=== PATIENT | male | born 1960 | race Caucasian/White ===

== ENCOUNTER 2016-11-25 10:10 | Emergency (ER) | payer OTHER ==
[2016-11-25 10:20] VITALS: O2SAT 97
[2016-11-25] MEDS ORDERED: BABY ASPIRIN 81 MG CHEW ONE (10:37)
[2016-11-25] MEDS ORDERED: Nitrostat 0.4 MG (ED) SL ONE ×2 (10:38→10:41)
[2016-11-25] MEDS ORDERED: MORPHINE SULFATE 4 MG INJ IV ONE (10:38)
--- NOTE | 2016-11-25 10:43 | ERPHSYRPT ---
- History of Present Illness Time Seen by Provider: 11/25/16 10:37 Source: patient Exam Limitations: no limitations Patient Subjective Stated Complaint: pt states he has been sob for the past 2 days. denies having a productive cough. denies any fever. states he has achiness to whole body. Triage Nursing Assessment: pt pink, warm, dry. lung sounds clear diminished in left lower lobe. pt afebrile at this time. Physician History: The patient is a 56-year-old male with a past medical history of an OR 2 years ago complaining of a sudden onset of all over body pain and mild shortness of breath that began 2 days ago while he was sitting. He denies any cough. He denies chest pain, nausea, vomiting, or sweating. He is supposed to take lisinopril for high blood pressure but does not take it at this time. He did not take any analgesics, such as tylenol and ibuprofen for his body pain. He went to [facility] today but left because he was upset over the IV placement. His past medical history is significant for hypertension, back pain , and an OR. He states the OR was evaluated 2 years ago and no blockage was found. He smokes daily. Timing/Duration: day(s) (2) Severity: moderate Modifying Factors: Improves With: nothing Associated Symptoms: shortness of breath, No nausea, No cough, No chest pain Allergies/Adverse Reactions: ampicillin [Ampicillin] Allergy (Mild, Verified 11/25/16 10:20) midazolam HCl [From Versed] Allergy (Mild, Verified 11/25/16 10:20) promethazine HCl [From Phenergan] Allergy (Mild, Verified 11/25/16 10:20) Home Medications: No Reportable Medications [No Reported Medications] 11/25/16 [History] Hx Tetanus, Diphtheria Vaccination/Date Given: Yes (up to date) Hx Influenza Vaccination/Date Given: No Hx Pneumococcal Vaccination/Date Given: No Immunizations Up to Date: Yes - Review of Systems Constitutional: No Fever, No Chills Eyes: No Symptoms Ears, Nose, & Throat: No Symptoms Respiratory: Dyspnea (mild), No Cough Cardiac: No Chest Pain, No Edema, No Syncope Abdominal/Gastrointestinal: No Abdominal Pain, No Nausea, No Vomiting, No Diarrhea Genitourinary Symptoms: No Dysuria Musculoskeletal: No Back Pain, No Neck Pain Skin: No Rash Neurological: No Dizziness, No Focal Weakness, No Sensory Changes Psychological: No Symptoms Endocrine: No Symptoms Hematologic/Lymphatic: No Symptoms Immunological/Allergic: No Symptoms All Other Systems: Reviewed and Negative - Past Medical History Pertinent Past Medical History: Yes Neurological History: No Pertinent History Cardiac History: No Pertinent History Respiratory History: No Pertinent History Endocrine Medical History: No Pertinent History Musculoskeletal History: Osteoarthritis GI Medical History: Diverticulitis Other Medical History: back problems - Past Surgical History Past Surgical History: Yes Gastrointestinal: Colon Resection, Hernia Repair Musculoskeletal: Orthopedic Surgery - Social History Smoking Status: Current every day smoker How long have you smoked: 40 Exposure to second hand smoke: Yes Drug Use: none Patient Lives Alone: No - Nursing Vital Signs Nursing Vital Signs: Initial Vital Signs Temperature 97.8 F 11/25/16 10:12 Pulse Rate 52 L 11/25/16 10:12 Respiratory Rate 28 H 11/25/16 10:12 Blood Pressure 152/93 11/25/16 10:12 O2 Sat by Pulse Oximetry 97 11/25/16 10:12 Pain Scale Pain Intensity 5 - Physical Exam General Appearance: moderate distress Eye Exam: PERRL/EOMI, eyes nml inspection Ears, Nose, Throat Exam: normal ENT inspection, TMs normal, pharynx normal, moist mucous membranes Neck Exam: normal inspection, non-tender, supple, full range of motion Respiratory Exam: normal breath sounds, lungs clear, No respiratory distress Cardiovascular Exam: regular rate/rhythm, normal heart sounds, normal peripheral pulses Gastrointestinal/Abdomen Exam: soft, normal bowel sounds, other (obese), No tenderness, No mass Rectal Exam: not done Back Exam: normal inspection, normal range of motion, No CVA tenderness, No vertebral tenderness Extremity Exam: normal inspection, normal range of motion, pelvis stable Neurologic Exam: alert, oriented x 3, cooperative, normal mood/affect, nml cerebellar function, nml station & gait, sensation nml, No motor deficits Skin Exam: normal color, warm, dry, No rash Lymphatic Exam: No adenopathy SpO2 Interpretation: normal SpO2: 97 Oxygen Delivery: Room Air - Course EKG Interpreted by Me: RATE, Right Bundle Branch Block, ST Elev (V1, V2, V3, II) - Progress Progress: unchanged Progress Note: 11/25/16 11:08 The patient was given morphine 4 mg and nitroglycerin 0.4 mg sublingual without relief. The blood pressure after these 2 medicines did lower. I spoke with Dr. Cooper at [facility] ER who accepts transfer of the patient for possible acute coronary syndrome. Comparison of today's EKG and one from [facility] dated 06/27/16 shows flipped T waves in V4, V5, and V6. Discussed with Dr.: Other (Dr Cooper at [facility] ) Counseled pt/family regarding: diagnosis - Departure Time of Disposition: 11:12 Departure Disposition: Transfer ([facility] ER per DR Cooper.) Clinical Impression: Acute coronary syndrome, Acute electrocardiogram changes Condition: Stable Critical Care Time: No Referrals: KIKE LINDSAY [Primary Care Provider] - Additional Instructions: Your having a possible acute coronary syndrome. You have changes in your EKG. The EKG from 06/27/16 has changed today. You're being transferred to [facility] ER to see Dr. Cooper. You were given in our ER morphine 4 mg, nitroglycerin 0.4 mg, heparin 5000 unit bolus, and heparin 1600 unit per hour drip.
[2016-11-25] MEDS ORDERED: BABY ASPIRIN 81 MG CHEW PO ONE (10:45)
[2016-11-25] MEDS ORDERED: MORPHINE SULFATE 4 MG INJ ONE (10:46)
[2016-11-25] MEDS ORDERED: Heparin 25,000 units/D5W 250ML PREMIX 25,000 UNITS/250 ML BAG IV ONE (11:04)
[2016-11-25] MEDS ORDERED: Heparin 5000 UNITS/0.5 ML (HIGH RISK MED) ONE (11:04)
[2016-11-25 11:05] LABS: BASOPHIL % 0.1 % (0.0-0.4); Eosinophil % 4.7 % (0.00-5.0); Lymphocytes % 23.1 % (24.0-44.0); Mean Cell Volume 84.3 fl (78-100); Mean Corpuscular Hemoglobin 29.2 pg (26-32); Mean Platelet Volume 10.7 fl (6-9.5); Monocytes % 8.1 % (0.0-12.0); Platelet Count 159 K/mm3 (150-450); Red Blood Count 5.27 M/mm3 (4.1-5.6); Red Cell Distribution Width 13.7 % (11.5-14.0)
--- NOTE | 2016-11-25 11:11 | XRAY ---
Indication: Short of breath. Comparison: None Portable chest demonstrates borderline cardiomegaly and vascular congestion without consolidation or large effusion. Bony thorax intact with spinal degenerative changes.
[2016-11-25 11:36] LABS: ALBUMIN 3.2 g/dL (3.4-5.0); ALKALINE PHOSPHATASE 124 U/L (46-116); ANION GAP 14.1 MEQ/L (5-15); BLOOD UREA NITROGEN 7 mg/dL (9-20); CHLORIDE 107 mEq/L (98-107); Carbon Dioxide 23.8 mEq/L (21-32); Glucose 121 MG/DL (70-110); LIPASE 334 U/L (73-393); Potassium 3.3 mEq/L (3.5-5.1); SGOT/AST 32 U/L (15-37); SGPT/ALT 17 U/L (12-78); SODIUM 142 mEq/L (136-145); Total Protein 7.5 gm/dL (6.4-8.2)
[2016-11-25 11:37] VITALS: BP 146/77; PULSE 48
== END 2016-11-25 11:15 | disposition short-term general hospital (02) ==
LOC: ED 10:10
DX: I24.9 Acute ischemic heart disease, unspecified (principal); R94.31 Abnormal electrocardiogram [ECG] [EKG]; R06.02 Shortness of breath; I25.2 Old myocardial infarction; R11.2 Nausea with vomiting, unspecified
CPT/HCPCS: 36000; 36415; 71010; 80053; 83605; 83690; 84484; 85025; 87631; 93005; 93041; 96374; 99285; J1644; J2270; A9270-GY

== ENCOUNTER 2017-06-28 00:36 | Emergency (ER) | payer OTHER ==
[2017-06-28 00:48] VITALS: BP 122/85; PULSE 89; O2SAT 98
--- NOTE | 2017-06-28 01:01 | ERPHSYRPT ---
- History of Present Illness Time Seen by Provider: 06/28/17 00:58 Source: patient Exam Limitations: no limitations Patient Subjective Stated Complaint: states he has been having pain down his left arm for 7 or 8 months been to [facility] and they told him it was pinched nerve. Triage Nursing Assessment: pt alert and orientedx3, ambualtes by self, gait is steady, lung sounds clear, no abnormalities noted in shoulder or kneck. skin warm dry and intact Physician History: states he has been having pain down his left arm for 7 or 8 months been to [facility] in [place] and they told him it was pinched nerve. Occurred: other (for 6-7 months) Method of Injury: unknown Quality: intermittent, aching Severity of Pain-Max: mild Severity of Pain-Current: mild Extremities Pain Location: shoulder: left Allergies/Adverse Reactions: ampicillin [Ampicillin] Allergy (Mild, Verified 11/25/16 10:20) midazolam HCl [From Versed] Allergy (Mild, Verified 11/25/16 10:20) promethazine HCl [From Phenergan] Allergy (Mild, Verified 11/25/16 10:20) Hx Tetanus, Diphtheria Vaccination/Date Given: Yes Hx Influenza Vaccination/Date Given: No Hx Pneumococcal Vaccination/Date Given: No Immunizations Up to Date: Yes - Review of Systems Constitutional: No Symptoms Eyes: No Symptoms Ears, Nose, & Throat: No Symptoms Respiratory: No Symptoms Cardiac: No Symptoms Abdominal/Gastrointestinal: No Symptoms Genitourinary Symptoms: No Symptoms Musculoskeletal: Joint Pain Skin: No Symptoms - Past Medical History Pertinent Past Medical History: Yes Neurological History: No Pertinent History Cardiac History: No Pertinent History Respiratory History: No Pertinent History Endocrine Medical History: No Pertinent History Musculoskeletal History: Osteoarthritis GI Medical History: Diverticulitis Other Medical History: back problems - Past Surgical History Past Surgical History: Yes Gastrointestinal: Colon Resection, Hernia Repair Musculoskeletal: Orthopedic Surgery - Social History Smoking Status: Current every day smoker How long have you smoked: 40 Exposure to second hand smoke: Yes Drug Use: none Patient Lives Alone: No - Nursing Vital Signs Nursing Vital Signs: Initial Vital Signs Temperature 97.6 F 06/28/17 00:37 Pulse Rate 89 06/28/17 00:37 Respiratory Rate 18 06/28/17 00:37 Blood Pressure 122/85 06/28/17 00:37 O2 Sat by Pulse Oximetry 98 04/14/18 00:37 Pain Scale Pain Intensity 10 - Physical Exam General Appearance: no apparent distress Eyes, Ears, Nose, Throat Exam: normal ENT inspection Shoulder Exam: normal inspection, non-tender, no evidence of injury, normal ROM , pain, No bone tenderness, No deformity, No soft tissue tenderness SpO2: 98 Oxygen Delivery: Room Air - Course Nursing assessment & vital signs reviewed: Yes - Radiology Exams Left Shoulder X-ray Interpretation: Reviewed by me, Negative, No Fracture Ordered Tests: Active Orders 24 hr Category Date Time Status SHOULDER Stat Exams 06/28/17 Ordered - Progress Progress: unchanged Counseled pt/family regarding: diagnosis, need for follow-up, rad results - Departure Time of Disposition: 01:24 Departure Disposition: Home Clinical Impression: Shoulder pain, left Qualifiers: Chronicity: chronic Qualified Code(s): M25.512 - Pain in left shoulder; G89.29 - Other chronic pain; G89.29 - Other chronic pain Condition: Stable Critical Care Time: No Referrals: KIKE LINDSAY [Primary Care Provider] - Instructions: Shoulder Bursitis (DC) Additional Instructions: SPRAINS/STRAINS/CONTUSIONS 1. Rest the affected area as much as possible for the next few days. 2. Apply ice to the affected area for 20-30 minutes at a time, several times a day. 3. If you receive an elastic wrap, wear it only while awake for comfort and support. Re-wrap the elastic wrap if it feels too tight or too loose. 4. If swelling is present, elevate the affected part above the level of the heart for at least 2 to 3 days. 5. Use splints, slings, or crutches as instructed. 6. Watch for severe swelling, coldness, numbness, and discoloration of the fingers and toes. See your family physician or return to the emergency department if any of these are noted. Prescriptions: Naproxen 500 mg [Naprosyn 500 MG] 500 mg PO BIDAC #30 tablet Orphenadrine Citrate 100 mg [Norflex 100 MG Tablet] 100 mg PO BID #20 tab
--- NOTE | 2017-06-28 07:31 | XRAY ---
Indication: Shoulder pain 7 months. No known injury. Comparison: None 3 views of the left shoulder demonstrates mild AC degenerative arthropathy and tiny humeral head cyst. No other bony, articular, or soft tissue abnormalities.
== END 2017-06-28 01:43 | disposition home or self-care (01) ==
LOC: ED 00:36
DX: M25.512 Pain in left shoulder (principal); G89.29 Other chronic pain
CPT/HCPCS: 73030; 99281; 99283

== ENCOUNTER 2018-12-09 10:21 | Observation (INO) | payer OTHER ==
--- NOTE | 2018-12-09 10:34 | ERPHSYRPT ---
- History of Present Illness Time Seen by Provider: 12/09/18 10:34 Historian: patient Exam Limitations: no limitations Patient Subjective Stated Complaint: Abd pain Physician History: RUQ and RLQ pain for 4 months. H/O Diverticulitis/Colectomy Timing/Duration: other (4 months) Quality: burning, cramping Abdominal Pain Onset Location: RUQ, RLQ Pain Radiation: no radiation Severity of Pain-Max: moderate Severity of Pain-Current: moderate Modifying Factors: Improves With: nothing Associated Symptoms: nausea, No denies symptoms, No back, No chest pain, No diaphoresis, No diarrhea, No fever/chills, No fatigue, No headache, No heartburn , No loss of appetite, No neck pain, No rash, No shortness of breath Previous symptoms: same symptoms as today Allergies/Adverse Reactions: ampicillin [Ampicillin] Allergy (Mild, Verified 12/09/18 10:32) midazolam HCl [From Versed] Allergy (Mild, Verified 12/09/18 10:32) promethazine HCl [From Phenergan] Allergy (Mild, Verified 12/09/18 10:32) Home Medications: Cyanocobalamin (Vitamin B-12) [B-12] 1,000 mg PO DAILY 12/09/18 [History] Liraglutide [Victoza 2-Hung] 1.8 mg SQ DAILY 12/09/18 [History] Lisinopril/Hydrochlorothiazide [Lisinopril-Hctz 20-25 mg Tab] 10 mg PO DAILY [History] Oxycodone / APAP 10/325 mg [Oxycodone-Acetaminophen 10-325] 10 mg PO QID 12/09/18 [History] Pravastatin Sodium 20 mg PO DAILY 12/09/18 [History] Hx Tetanus, Diphtheria Vaccination/Date Given: Yes Hx Influenza Vaccination/Date Given: No Hx Pneumococcal Vaccination/Date Given: No - Review of Systems Constitutional: No Fever, No Chills Eyes: No Symptoms Ears, Nose, & Throat: No Symptoms Respiratory: No Cough, No Dyspnea Cardiac: No Chest Pain, No Edema, No Syncope Abdominal/Gastrointestinal: Abdominal Pain, Nausea, Constipation, No Vomiting, No Diarrhea Genitourinary Symptoms: No Dysuria Musculoskeletal: No Back Pain, No Neck Pain Skin: No Rash Neurological: No Dizziness, No Focal Weakness, No Sensory Changes Psychological: No Symptoms Endocrine: No Symptoms All Other Systems: Reviewed and Negative - Past Medical History Pertinent Past Medical History: Yes Neurological History: No Pertinent History Cardiac History: No Pertinent History Respiratory History: No Pertinent History Endocrine Medical History: No Pertinent History Musculoskeletal History: Osteoarthritis GI Medical History: Diverticulitis Other Medical History: back problems - Past Surgical History Past Surgical History: Yes Gastrointestinal: Colon Resection, Hernia Repair Musculoskeletal: Orthopedic Surgery - Social History Smoking Status: Current every day smoker How long have you smoked: 40 Exposure to second hand smoke: Yes Drug Use: none Patient Lives Alone: No - Nursing Vital Signs Nursing Vital Signs: Initial Vital Signs Temperature 97.8 F 12/09/18 10:24 Pulse Rate 60 12/09/18 10:24 Respiratory Rate 16 12/09/18 10:24 Blood Pressure 104/57 12/09/18 10:24 O2 Sat by Pulse Oximetry 99 12/09/18 10:24 Pain Scale Pain Intensity 4 - Physical Exam General Appearance: no apparent distress, alert Eye Exam: PERRL/EOMI, eyes nml inspection Ears, Nose, Throat Exam: normal ENT inspection, pharynx normal, moist mucous membranes Neck Exam: normal inspection, non-tender, supple, full range of motion Respiratory Exam: normal breath sounds, lungs clear, No respiratory distress Cardiovascular Exam: regular rate/rhythm, normal heart sounds Gastrointestinal/Abdomen Exam: soft, normal bowel sounds, tenderness, No mass, No pulsatile mass, No rebound, No organomegaly Back Exam: normal inspection, normal range of motion, No CVA tenderness, No vertebral tenderness Extremity Exam: normal inspection, normal range of motion, pelvis stable Neurologic Exam: alert, oriented x 3, cooperative, normal mood/affect, nml cerebellar function, sensation nml, No motor deficits Skin Exam: normal color, warm, dry Lymphatic Exam: No adenopathy, No axilla node tender (L) SpO2 Interpretation: normal O2 Delivery: Room Air - Course Nursing assessment & vital signs reviewed: Yes EKG Interpreted by Me: Sinus [place], NORMAL AXIS, NORMAL INTERVALS, Non-specific ST Changes - CT Exams Abdomen/Pelvis CT Interpretation: Discussed w/radiologist, Other (nothing acute) Ordered Tests: Active Orders 24 hr Category Date Time Status EKG-ER Only STAT Care 12/09/18 12:09 Active IV Insertion STAT Care 12/09/18 10:38 Active ABDOMEN AND PELVIS W/0 CONTRAS [CT] Stat Exams 12/09/18 11:51 Completed CHEST 1 VIEW (PORTABLE) Stat Exams 12/09/18 12:39 Taken BLOOD CULTURE Stat Lab 12/09/18 11:00 Received CBC W DIFF Stat Lab 12/09/18 11:00 Completed CMP Stat Lab 12/09/18 11:00 Completed LIPASE Stat Lab 12/09/18 11:00 Completed Lactic Acid Stat Lab 12/09/18 12:09 Completed TROPONIN Stat Lab 12/09/18 12:09 Completed Transfer Order Routine Transfer 12/09/18 Ordered Medication Summary Generic Name Dose Route Start Last Admin Trade Name Freq PRN Reason Stop Dose Admin Fentanyl Citrate 50 mcg 12/09/18 13:11 Sublimaze 100 Mcg/2 Ml IV 12/14/18 13:10 Q4H PRN PRN SEVERE PAIN Discontinued Medications Generic Name Dose Route Start Last Admin Trade Name Freq PRN Reason Stop Dose Admin Fentanyl Citrate 25 mcg 12/09/18 13:11 Sublimaze 100 Mcg/2 Ml IV 12/09/18 13:12 STAT ONE Sodium Chloride 1,000 mls @ 999 mls/hr 12/09/18 12:10 12/09/18 12:54 Sodium Chloride 0.9% 1000 Ml IV 12/09/18 13:10 999 mls/hr .Q1H1M STA Administration Levofloxacin/Dextrose 500 mg in 100 mls @ 100 mls/hr 12/09/18 12:11 12/09/18 12:54 Levofloxacin 500mg/100ml D5w IV 12/09/18 13:10 100 mls/hr STAT STA 100 mls/hr Administration Sodium Chloride Confirm 12/09/18 12:53 Sodium Chloride 0.9% 1000 Ml Administered 12/09/18 12:54 Dose 1,000 mls @ ud .ROUTE .STK-MED ONE Levofloxacin/Dextrose Confirm 12/09/18 12:53 Levofloxacin 500mg/100ml D5w Administered 12/09/18 12:54 Dose 500 mg in 100 mls @ ud IV .STK-MED ONE Ondansetron HCl 4 mg 12/09/18 10:38 12/09/18 11:13 Zofran 4 Mg/2 Ml Vial IV 12/09/18 10:39 Not Given STAT ONE Ondansetron HCl 4 mg 12/09/18 11:14 12/09/18 11:22 Zofran Odt 4 Mg PO 12/09/18 11:15 4 mg STAT ONE Administration Ondansetron HCl Confirm 12/09/18 11:15 Zofran Odt 4 Mg Administered 12/09/18 11:16 Dose 4 mg .ROUTE .STK-MED ONE Lab/Rad Data: Laboratory Result Diagrams 12/09/18 11:00 12/09/18 11:00 Laboratory Results 12/09/18 12/09/18 12/09/18 Range/Units 12:09 12:09 11:00 WBC (4.0-10.5) K/mm3 RBC (4.1-5.6) M/mm3 Hgb (12.5-18.0) gm/dl Hct (42-50) % MCV (78-100) fl MCH (26-32) pg MCHC (32-36) g/dl RDW (11.5-14.0) % Plt Count (150-450) K/mm3 MPV (6-9.5) fl Gran % (36.0-66.0) % Eos # (Auto) (0-0.5) Absolute Lymphs (auto) (1.0-4.6) Absolute Monos (auto) (0.0-1.3) Lymphocytes % (24.0-44.0) % Monocytes % (0.0-12.0) % Eosinophils % (0.00-5.0) % Basophils % (0.0-0.4) % Absolute Granulocytes (1.4-6.9) Basophils # (0-0.4) Sodium 137 (137-145) mmol/L Potassium 4.1 (3.5-5.1) mmol/L Chloride 98 (98-107) mmol/L Carbon Dioxide 26 (22-30) mmol/L Anion Gap 16.1 H (5-15) MEQ/L BUN 31 H (9-20) mg/dL Creatinine 1.98 H (0.66-1.25) mg/dL Estimated GFR 37.0 ML/MIN Glucose 93 (74-106) mg/dL Lactic Acid 1.0 (0.4-2.0) Calcium 9.7 (8.4-10.2) mg/dL Total Bilirubin 0.60 (0.2-1.3) mg/dL AST 28 (17-59) U/L ALT 17 (0-50) U/L Alkaline Phosphatase 95 (38-126) U/L Troponin I < 0.012 (0.000-0.034) ng/mL Serum Total Protein 7.9 (6.3-8.2) g/dL Albumin 4.4 (3.5-5.0) g/dL Lipase 1220 H (23-300) U/L 12/09/18 Range/Units 11:00 WBC 10.9 H (4.0-10.5) K/mm3 RBC 5.17 (4.1-5.6) M/mm3 Hgb 15.4 (12.5-18.0) gm/dl Hct 44.7 (42-50) % MCV 86.5 (78-100) fl MCH 29.8 (26-32) pg MCHC 34.5 (32-36) g/dl RDW 13.8 (11.5-14.0) % Plt Count 253 (150-450) K/mm3 MPV 10.1 H (6-9.5) fl Gran % 64.3 (36.0-66.0) % Eos # (Auto) 0.26 (0-0.5) Absolute Lymphs (auto) 2.77 (1.0-4.6) Absolute Monos (auto) 0.83 (0.0-1.3) Lymphocytes % 25.5 (24.0-44.0) % Monocytes % 7.6 (0.0-12.0) % Eosinophils % 2.4 (0.00-5.0) % Basophils % 0.2 (0.0-0.4) % Absolute Granulocytes 6.98 H (1.4-6.9) Basophils # 0.02 (0-0.4) Sodium (137-145) mmol/L Potassium (3.5-5.1) mmol/L Chloride (98-107) mmol/L Carbon Dioxide (22-30) mmol/L Anion Gap (5-15) MEQ/L BUN (9-20) mg/dL Creatinine (0.66-1.25) mg/dL Estimated GFR ML/MIN Glucose (74-106) mg/dL Lactic Acid (0.4-2.0) Calcium (8.4-10.2) mg/dL Total Bilirubin (0.2-1.3) mg/dL AST (17-59) U/L ALT (0-50) U/L Alkaline Phosphatase (38-126) U/L Troponin I (0.000-0.034) ng/mL Serum Total Protein (6.3-8.2) g/dL Albumin (3.5-5.0) g/dL Lipase (23-300) U/L - Progress Discussed with : Tosin Will see patient in: hospital (observation) Counseled pt/family regarding: diagnosis - Departure Departure Disposition: Observation Clinical Impression: Pancreatitis Qualifiers: Chronicity: acute Pancreatitis type: unspecified pancreatitis type Acute pancreatitis complication: unspecified Qualified Code(s): K85.90 - Acute pancreatitis without necrosis or infection, unspecified Condition: Fair Critical Care Time: Yes Critical Care Time(excluding separately billable procedures): Critical 30-74 mins Referrals: JUAN MIRANDA [Primary Care Provider] - Plan of Treatment: Admit
[2018-12-09] MEDS ORDERED: Zofran 4 MG/2 ML VIAL IV ONE (10:38)
[2018-12-09 11:03] LABS: BASOPHIL % 0.2 % (0.0-0.4); Basophil (Absolute #) 0.02 (0-0.4); Eosinophil % 2.4 % (0.00-5.0); Eosinophil (Absolute #) 0.26 (0-0.5); Granulocyte Absolute (ANC) 6.98 (1.4-6.9); Granulocytes % 64.3 % (36.0-66.0); Hematocrit 44.7 % (42-50); Hemoglobin 15.4 gm/dl (12.5-18.0); Lymphocyte (Absolute #) 2.77 (1.0-4.6); Lymphocytes % 25.5 % (24.0-44.0); Mean Cell Volume 86.5 fl (78-100); Mean Corpuscular Hemoglobin 29.8 pg (26-32); Mean Corpuscular Hgb Concent. 34.5 g/dl (32-36); Mean Platelet Volume 10.1 fl (6-9.5); Monocyte (Absolute #) 0.83 (0.0-1.3); Monocytes % 7.6 % (0.0-12.0); Platelet Count 253 K/mm3 (150-450); Red Blood Count 5.17 M/mm3 (4.1-5.6); Red Cell Distribution Width 13.8 % (11.5-14.0); White Blood Count 10.9 K/mm3 (4.0-10.5)
[2018-12-09 11:11] LABS: ALBUMIN 4.4 g/dL (3.5-5.0); ANION GAP 16.1 MEQ/L (5-15); BILIRUBIN,TOTAL 0.6 mg/dL (0.2-1.3); Calcium 9.7 mg/dL (8.4-10.2); Creatinine 1 1.98 mg/dL (0.66-1.25); Potassium 4.1 mmol/L (3.5-5.1); Total Protein 7.9 g/dL (6.3-8.2)
[2018-12-09] MEDS ORDERED: ZOFRAN ODT 4 MG PO ONE (11:14)
[2018-12-09] MEDS ORDERED: ZOFRAN ODT 4 MG ONE (11:15)
[2018-12-09] MEDS ORDERED: Sodium Chloride 0.9% 1000 ML 1,000 ML IV STA (12:10)
[2018-12-09] MEDS ORDERED: Levofloxacin 500MG/100ML D5W 500 MG/100 ML BAG IV STA (12:11)
--- NOTE | 2018-12-09 12:50 | XRAY ---
Exam: CT of the abdomen and pelvis without IV contrast from 12/09/2018. CTDI: 27.49 mGy Comparison: None. Indication: 58-year-old male with abdominal pain, nausea and vomiting for 2 months, complains of "knot" in lower right abdomen (marked with a BB). Technique: Non-IV contrast axial images were obtained through the abdomen and pelvis. Reconstructed coronal and sagittal images were created and reviewed. Findings: The lung bases appear essentially clear with only minimal posterior bibasilar dependent atelectatic changes. The transverse heart size appears within normal limits. Evaluation of the solid organs is limited without the use of IV contrast material. With this limitation in mind, the liver and spleen appear unremarkable without definite mass or intrahepatic biliary duct distention. The gallbladder appears distended but reveals no dense calcifications within it. The pancreas appears unremarkable. There is some mild thickening of the limbs of the adrenal glands, but a definite mass is not seen. The kidneys appear of unremarkable size and reveal no calculi or hydronephrosis. No definite solid renal mass is seen. I cannot exclude an 11-12 mm in diameter round cyst at the inferior margin of the right kidney on axial image #46. This measures +9.2 Hounsfield units. Incidentally, an apparent pill density or calcification is seen within a small bowel loop just anterior to the lower pole of the left kidney. Moderate atherosclerotic calcification is seen within the abdominal aorta and iliac arteries. No abdominal aortic aneurysm or abnormal retroperitoneal lymphadenopathy is seen. There is abundant intraperitoneal fat. There is no free intraperitoneal air. There is a mildly flaccid appearance of the anterior abdominal wall. Some surgical clips are seen near the midline and just to the right of midline near the anterior abdominal wall from prior surgery. In addition, there appears to be an infra umbilical ventral hernia containing a loop of small bowel within it just to the right of midline. It does not appear to be obstructed at this time. This hernia measures about 5.6 cm in width and at least 4.9 cm in height. This must be what the patient is feeling. The remainder of the bowel gas pattern appears unremarkable. Scattered stool is seen within the right hemicolon and rectosigmoid colon. I see no findings to suggest appendicitis within the right lower quadrant. I do note a couple small pill densities or calcifications within the cecum. No pelvic mass is seen. The urinary bladder is minimally distended, but appears grossly unremarkable. There appears to be some distal bowel surgery within the sigmoid colon region. Correlate clinically. The seminal vesicles and prostate gland appear unremarkable. No free fluid or enlarged pelvic lymph nodes are seen. A few small postinflammatory lymph nodes are seen within the femoral regions. The skeleton reveals no acute fracture or aggressive bone lesion. Mild spondylosis changes are seen throughout the visualized thoracolumbar spine. There is mild degenerative disc disease at L4-L5 and moderate to marked degenerative disc disease at L5-S1. Lower lumbar facet joint arthropathy is seen as well. Impression: 1. There is an infra umbilical ventral hernia extending slightly to the right of midline containing some nondilated small bowel within it. Correlate clinically. I see no evidence of bowel obstruction or strangulation at this time. 2. No other acute intra-abdominal or pelvic process is seen. I note evidence of prior surgery. Correlate clinically.
[2018-12-09] MEDS ORDERED: Sodium Chloride 0.9% 1000 ML 1,000 ML ONE (12:53)
[2018-12-09] MEDS ORDERED: Levofloxacin 500MG/100ML D5W 500 MG/100 ML BAG IV ONE (12:53)
[2018-12-09] MEDS ORDERED: SUBLIMAZE 100 MCG/2 ML IV PRN (13:11)
[2018-12-09] MEDS ORDERED: SUBLIMAZE 100 MCG/2 ML IV ONE (13:11)
--- NOTE | 2018-12-09 13:14 | XRAY ---
Exam: AP upright portable chest film from 12/09/2018. Comparison: Two-view chest from 04/09/2018. Indication: 58-year-old male with vomiting, post IJ line placement. Findings: The film was obtained in a lordotic projection. There is a tiny vascular line seen at the superior margin of the radiograph within the lower right side of the neck with the tip located about 4.5 cm to the right of midline at the level of the superior vertebral endplate of C6. This is located at least 3.9 cm above the superior margin of the right lung apex. There is no pneumothorax. The transverse heart size appears within normal limits for this AP portable technique. The chon and mediastinal structures appear unremarkable. The lung bentley are adequately inflated. No air space infiltrates, vascular congestion, or pleural fluid is seen. Degenerative osteophyte formation is seen within the lower thoracic spine. I also note some asymmetric osteoarthritic changes of the left shoulder joint and left acromioclavicular joint. Impression: 1. Evidently, a right internal jugular vascular line has been placed. The tip is pointing inferiorly within the soft tissues of the lower right side of the neck. No pneumothorax is seen. 2. No acute cardiopulmonary disease is seen, no change from 04/09/2018.
[2018-12-09] MEDS ORDERED: SUBLIMAZE 100 MCG/2 ML ONE (13:17)
[2018-12-09] MEDS ORDERED: Zofran 4 MG/2 ML VIAL IV PRN (13:41)
[2018-12-09] MEDS ORDERED: MEDICATION INTERVENTION MC SCH (16:45)
[2018-12-09] MEDS ORDERED: OXYCODONE-ACETAMINOPHEN 10-325 PO PRN (17:00)
[2018-12-09] MEDS ORDERED: OXYCODONE-ACETAMINOPHEN 10-325 PO SCH (17:00)
--- NOTE | 2018-12-09 17:33 | PCM.HP ---
History of Present Illness - Chief Complaint Chief Complaint: Pt. notes abdominal pain for the past 4 months. Date: 12/09/18 History of Present Illness: is a 58 year old male. Presents to ER with vomiting, and diffuse abdominal pain the past several months , he does not note any specific reason other than tired of the pain as the initiation of er visit. Pt. notes and upset he has not ate the past 4 days. - Review of Systems Constitutional: No Fever, No Chills Eyes: No Symptoms Ears, Nose, & Throat: No Symptoms Respiratory: No Cough, No Short Of Breath Cardiac: No Chest Pain, No Edema, No Syncope Abdominal/Gastrointestinal: Abdominal Pain, Nausea, Vomiting, No Diarrhea, No Constipation Genitourinary Symptoms: No Dysuria Musculoskeletal: No Back Pain, No Neck Pain Skin: No Rash Neurological: No Dizziness, No Focal Weakness, No Sensory Changes Psychological: No Symptoms Endocrine: No Symptoms Hematologic/Lymphatic: No Symptoms Medications & Allergies Home Medications: Home Medication List Cyanocobalamin (Vitamin B-12) [B-12] 1,000 mcg PO DAILY 12/09/18 [History Confirmed 12/09/18] Liraglutide [Victoza 2-Hung] 1.8 mg SQ DAILY 12/09/18 [History Confirmed 12/09/18 ] Lisinopril/Hydrochlorothiazide [Lisinopril-Hctz 20-25 mg Tab] 1 tab PO DAILY [History Confirmed 12/09/18] Oxycodone / APAP 10/325 mg [Oxycodone-Acetaminophen 10-325] 1 tab PO QID 12/09/18 [History Confirmed 12/09/18] Pravastatin Sodium 20 mg PO HS 12/09/18 [History Confirmed 12/09/18] Allergies/Adverse Reactions: Allergies Allergy/AdvReac Type Severity Reaction Status Date / Time ampicillin [Ampicillin] Allergy Mild Verified 12/09/18 10:32 midazolam HCl [From Versed] Allergy Mild Verified 12/09/18 10:32 promethazine HCl Allergy Mild Verified 12/09/18 10:32 [From Phenergan] - Past Medical History Past Medical History: Yes Neurological History: No Pertinent History ENT History: No Pertinent History Cardiac History: Hypertension, Myocardial Infarction ([place]) Respiratory History: No Pertinent History Endocrine Medical History: Diabetes Type II Musculoskelatal History: Osteoarthritis GI Medical History: Diverticulitis History: No Pertinent History Pyscho-Social History: No Pertinent History Male Reproductive Disorders: No Pertinent History Comment: back problems - Past Surgical History Past Surgical History: Yes Neuro Surgical History: No Pertinent History Respiratory Surgery: No Pertinent History GI Surgical History: Colon Resection, Hernia Repair Musculskeletal Surgical Hx: Orthopedic Surgery Other Surgical History: a couple ""back operations. - Social History Smoking Status: Current every day smoker How long have you smoked: 40 Exposure to second hand smoke: Yes Alcohol: None Drug Use: none - Physical Exam Vital Signs: Vital Signs - 24 hr Temp Pulse Resp BP Pulse Ox 12/09/18 16:00 18 12/09/18 15:57 97.9 F 60 18 132/59 98 12/09/18 14:14 98.3 F 57 L 18 120/70 98 12/09/18 13:50 98.3 F 57 L 18 120/70 98 12/09/18 12:51 98.6 F 54 L 16 106/48 97 12/09/18 12:22 54 L 16 83/63 98 12/09/18 11:16 98.1 F 86 20 91/57 99 12/09/18 10:24 97.8 F 60 16 104/57 99 General Appearance: no apparent distress, alert Neurologic Exam: alert, oriented x 3, cooperative, normal mood/affect, agitation , No motor deficits Eye Exam: PERRL/EOMI, eyes nml inspection Ears, Nose, Throat Exam: normal ENT inspection, moist mucous membranes Neck Exam: normal inspection, non-tender, supple Respiratory Exam: normal breath sounds, lungs clear, No respiratory distress Cardiovascular Exam: regular rate/rhythm, normal heart sounds, normal peripheral pulses Gastrointestinal/Abdomen Exam: soft, tenderness, other (ventral hernias noted), No mass, No rebound Rectal Exam: deferred Extremity Exam: normal inspection, normal range of motion Skin Exam: normal color, warm, dry, No rash Results - Labs Lab/Micro Results: Lab Results-Last 24 Hours 12/09/18 12/09/18 12/09/18 Range/Units 11:00 11:00 12:09 WBC 10.9 H (4.0-10.5) K/mm3 RBC 5.17 (4.1-5.6) M/mm3 Hgb 15.4 (12.5-18.0) gm/dl Hct 44.7 (42-50) % MCV 86.5 (78-100) fl MCH 29.8 (26-32) pg MCHC 34.5 (32-36) g/dl RDW 13.8 (11.5-14.0) % Plt Count 253 (150-450) K/mm3 MPV 10.1 H (6-9.5) fl Gran % 64.3 (36.0-66.0) % Eos # (Auto) 0.26 (0-0.5) Absolute Lymphs (auto) 2.77 (1.0-4.6) Absolute Monos (auto) 0.83 (0.0-1.3) Lymphocytes % 25.5 (24.0-44.0) % Monocytes % 7.6 (0.0-12.0) % Eosinophils % 2.4 (0.00-5.0) % Basophils % 0.2 (0.0-0.4) % Absolute Granulocytes 6.98 H (1.4-6.9) Basophils # 0.02 (0-0.4) Sodium 137 (137-145) mmol/L Potassium 4.1 (3.5-5.1) mmol/L Chloride 98 (98-107) mmol/L Carbon Dioxide 26 (22-30) mmol/L Anion Gap 16.1 H (5-15) MEQ/L BUN 31 H (9-20) mg/dL Creatinine 1.98 H (0.66-1.25) mg/dL Estimated GFR 37.0 ML/MIN Glucose 93 (74-106) mg/dL Lactic Acid 1.0 (0.4-2.0) Calcium 9.7 (8.4-10.2) mg/dL Total Bilirubin 0.60 (0.2-1.3) mg/dL AST 28 (17-59) U/L ALT 17 (0-50) U/L Alkaline Phosphatase 95 (38-126) U/L Troponin I (0.000-0.034) ng/mL Serum Total Protein 7.9 (6.3-8.2) g/dL Albumin 4.4 (3.5-5.0) g/dL Lipase 1220 H (23-300) U/L 12/09/18 12/09/18 Range/Units 12:09 14:07 WBC (4.0-10.5) K/mm3 RBC (4.1-5.6) M/mm3 Hgb (12.5-18.0) gm/dl Hct (42-50) % MCV (78-100) fl MCH (26-32) pg MCHC (32-36) g/dl RDW (11.5-14.0) % Plt Count (150-450) K/mm3 MPV (6-9.5) fl Gran % (36.0-66.0) % Eos # (Auto) (0-0.5) Absolute Lymphs (auto) (1.0-4.6) Absolute Monos (auto) (0.0-1.3) Lymphocytes % (24.0-44.0) % Monocytes % (0.0-12.0) % Eosinophils % (0.00-5.0) % Basophils % (0.0-0.4) % Absolute Granulocytes (1.4-6.9) Basophils # (0-0.4) Sodium (137-145) mmol/L Potassium (3.5-5.1) mmol/L Chloride (98-107) mmol/L Carbon Dioxide (22-30) mmol/L Anion Gap (5-15) MEQ/L BUN (9-20) mg/dL Creatinine (0.66-1.25) mg/dL Estimated GFR ML/MIN Glucose (74-106) mg/dL Lactic Acid (0.4-2.0) Calcium (8.4-10.2) mg/dL Total Bilirubin (0.2-1.3) mg/dL AST (17-59) U/L ALT (0-50) U/L Alkaline Phosphatase (38-126) U/L Troponin I < 0.012 < 0.012 (0.000-0.034) ng/mL Serum Total Protein (6.3-8.2) g/dL Albumin (3.5-5.0) g/dL Lipase (23-300) U/L - Radiology Impressions Radiology Exams & Impressions: Radiology Procedures Category Date Time Status ABDOMEN AND PELVIS W/0 CONTRAS [CT] Stat Exams 12/09/18 11:51 Completed CHEST 1 VIEW (PORTABLE) Stat Exams 12/09/18 12:39 Completed Assessment/Plan (1) Pancreatitis Current Visit: Yes Status: Acute Qualifiers: Chronicity: acute Pancreatitis type: unspecified pancreatitis type Acute pancreatitis complication: unspecified Qualified Code(s): K85.90 - Acute pancreatitis without necrosis or infection, unspecified Assessment & Plan: Hydration and NPO, recheck lipase in am Code(s): K85.90 - ACUTE PANCREATITIS WITHOUT NECROSIS OR INFECTION, UNSP
[2018-12-09] MEDS: SUBLIMAZE 100 MCG/2 ML IV PRN ×2 (20:40→23:06)
[2018-12-09] MEDS: Sodium Chloride 0.9% 10 ML FLUSH Syringe IV SCH (20:41)
[2018-12-09] MEDS: Sodium Chloride 0.9% 1000 ML 1,000 ML IV SCH (23:06)
[2018-12-10] MEDS: SUBLIMAZE 100 MCG/2 ML IV PRN ×2 (04:34→07:35)
[2018-12-10] MEDS: Sodium Chloride 0.9% 1000 ML 1,000 ML IV SCH (04:47)
[2018-12-10] MEDS: Sodium Chloride 0.9% 10 ML FLUSH Syringe IV SCH (04:48)
[2018-12-10 04:53] LABS: BASOPHIL % 0.1 % (0.0-0.4); Basophil (Absolute #) 0.01 (0-0.4); Eosinophil (Absolute #) 0.28 (0-0.5); Granulocyte Absolute (ANC) 6.39 (1.4-6.9); Granulocytes % 68.2 % (36.0-66.0); Hematocrit 42.8 % (42-50); Hemoglobin 14.8 gm/dl (12.5-18.0); Lymphocyte (Absolute #) 1.95 (1.0-4.6); Lymphocytes % 20.8 % (24.0-44.0); Mean Cell Volume 86.8 fl (78-100); Mean Corpuscular Hgb Concent. 34.6 g/dl (32-36); Mean Platelet Volume 9.9 fl (6-9.5); Monocyte (Absolute #) 0.74 (0.0-1.3); Monocytes % 7.9 % (0.0-12.0); Platelet Count 217 K/mm3 (150-450); Red Blood Count 4.93 M/mm3 (4.1-5.6); Red Cell Distribution Width 13.6 % (11.5-14.0); White Blood Count 9.4 K/mm3 (4.0-10.5)
[2018-12-10 05:13] LABS: ALBUMIN 3.9 g/dL (3.5-5.0); ANION GAP 13.7 MEQ/L (5-15); BILIRUBIN,TOTAL 0.7 mg/dL (0.2-1.3); Calcium 9.2 mg/dL (8.4-10.2); Creatinine 1 1.41 mg/dL (0.66-1.25); Potassium 4.3 mmol/L (3.5-5.1); Total Protein 7.1 g/dL (6.3-8.2)
[2018-12-10 07:25] VITALS: BP 112/67; PULSE 62; O2SAT 96
--- NOTE | 2018-12-10 08:40 | XRAY ---
Indication: PICC line placement. Comparison: Taken earlier in the day. Portable chest demonstrates new left arm PICC line with tip projecting over the SVC. Previous right IJ central venous access catheter not seen. Remaining heart and lungs again normal. Comment: Preliminary interpretation was made by [facility]. No discrepancy.
[2018-12-10] MEDS ORDERED: Vitamin B-12 500 MCG PO SCH (10:00)
[2018-12-10 10:08] LABS: Risk Ratio 4.4
--- NOTE | 2018-12-10 13:23 | SSS ---
DISCHARGE DIAGNOSIS: PANCREATITIS. HISTORY: The patient is a 58 year-old white male patient who reports he has been having intermittent abdominal pain and nausea over the past several weeks. He reports he just got to feeling worse yesterday with vomiting and presented himself to the emergency room. The patient was seen in the emergency room and diagnosed with pancreatitis and placed NPO and admitted to the hospital. The patient by morning was feeling hungry and reports will sign out AMA if he does not get anything to eat. PAST MEDICAL/SURGICAL HISTORY: Significant for previous colon surgery. He had a sigmoid colectomy for what sounds like diverticular disease. He reports there was no cancer. The patient otherwise has hypertension. He has osteoarthritis, back pain. He had the colon resection, herniorrhaphy, orthopedic surgeries. Also includes diabetes for which he is currently taking Victoza. HOME MEDICATIONS: Include Victoza, lisinopril, oxycodone, pravastatin, B12. ALLERGIES: AMPICILLIN. PHENERGAN. VERSED. PHYSICAL EXAMINATION: The patient's vital signs on admission showed his temperature to be 97.8F, pulse 60, respiratory rate 16, blood pressure 104/57. O2 saturation 99% on room air. HEENT: Normocephalic, atraumatic. Pupils equal round reactive to light. Extraocular movements intact. Oropharynx is pink and moist. NECK: Supple without lymphadenopathy, thyromegaly or JVD. CHEST: Clear to auscultation. HEART: Regular rate and rhythm. ABDOMEN: Soft. No palpable masses. There is small ventral hernia. EXTREMITIES: Without cyanosis, clubbing or edema. NEUROLOGIC: The patient is alert and oriented x3. LAB DATA AND TESTS: Laboratory studies have shown a white count of 9.400, hemoglobin 14.8, PLT count 217,000. The patient's lipase in the morning was 1,483 this was slightly up from 1,220 on initial evaluation. The patient's metabolic panel otherwise showed his sugar to be 78, BUN 29, creatinine 1.41. Electrolytes were normal. Liver enzymes were normal. Bilirubin normal. Troponin was normal also. His CT scan showed umbilical ventral hernia and nondilated loop of small bowel within it. There is no other acute process going on. It does show evidence of previous colon surgery. HOSPITAL COURSE: The patient had internal jugular placed and then a PICC line due to poor IV access. He has been receiving IV fluids. By the morning of 12/10/2018, the patient was feeling hungry and anxious to return home. We instructed him on a low fat diet and gave him some Zofran tablets to take at home for nausea. He is to have follow up in our office in one week. We are also attempting to set him up with an appointment to see Dr. Ryan Muniz, GI Specialist, to evaluate his elevation in liver enzymes and evaluate his pancreas. He does still have his gallbladder which on the CT scan was apparently not abnormal. The patient was also felt to have contaminated blood culture with gram positive cocci in one or two bottles being present. Being a hard stick I feel it is likely that he had contamination as he had no increase in his white count or fever and otherwise essentially looks fine this morning.
== END 2018-12-10 10:32 | disposition home or self-care (01) ==
LOC: ED 10:21 → MED SURG 13:42
PROVIDERS: ADMIT Family Medicine; ATTEND Family Medicine
DX: K85.90 Acute pancreatitis without necrosis or infection, unspecified (principal); R11.2 Nausea with vomiting, unspecified; I10 Essential (primary) hypertension; R79.89 Other specified abnormal findings of blood chemistry; M19.90 Unspecified osteoarthritis, unspecified site; M54.9 Dorsalgia, unspecified; Z79.899 Other long term (current) drug therapy
CPT/HCPCS: 36000; 36415; 36569; 71045; 74176; 80053; 80061; 82962; 83036; 83605; 83690; 83721; 84484; 85025; 87040; 93005; 96360; 96365; 96374; 99285; G0378; 76942; 99291; J1956; J3010; Q0162; A9270-GY

== ENCOUNTER 2019-07-12 06:35 | Day surgery (SDC) | payer OTHER ==
[~2019-07-12 06:35] MED LIST: Lactated Ringers 1,000 ML IV ONE; Lactated Ringers 1,000 ML IV SCH
[2019-07-12] MEDS ORDERED: DIPRIVAN 200 MG/20 ML IV ONE ×2 (08:12→08:25)
--- NOTE | 2019-07-12 08:35 | HP ---
DATE OF SURGERY: 07/12/2019 HISTORY OF PRESENT ILLNESS: The patient is a 58 year-old with large ventral hernia. Prior surgery in [place] a [place] surgeon. He was seen six or seven months ago. He was being followed by Dr. Quesada at that time. He had a colonoscopy and considering hernia repair. As he had Dr. Quesada do his colonoscopy as a follow up after completion of that and given cardiac clearance which failed to do so and he now showed up in the office in May. He just showed up in the office here recently and evaluated for hernia repair. Exam as mentioned before. He needs a colonoscopy first and then consider hernia repair. PAST MEDICAL HISTORY: Myocardial infarction in the past. Heart disease. Chronic back pain. Trigeminal neuralgia. Hypertension. PAST SURGICAL HISTORY: Back surgery in the past. Colon resection with perforation five or six years ago in [place]. Hernia surgery in the past according to the patient. MEDICATIONS: He does not take any medications on a regular basis. He denies any current medication list. Back in November it looks like he had been on some vitamin B12, lisinopril, oxycodone, Pravastatin, Victoza. ALLERGIES: AMPICILLIN. MIDAZOLAM. PROMETHAZINE. FAMILY HISTORY: Cancer. SOCIAL HISTORY: One pack per day smoker. He was counseled to stop smoking in the past. He denies alcohol abuse. REVIEW OF SYSTEMS: Fourteen systems reviewed per admission assessment. No chest pain or palpitations other systems negative or noncontributory as above and per preadmission questionnaire. PHYSICAL EXAMINATION: GENERAL: HEENT: Sclerae nonicteric. NECK: No JVD. CHEST: Equal excursion, nonlabored breathing. CVS: Regular rate and rhythm. ABDOMEN: Soft. No peritoneal signs. EXTREMITIES: No significant edema. NEURO: Alert, oriented, moving extremities symmetrically. No gross motor deficits noted. RECTAL: Deferred timed to endoscopy exam. IMPRESSION: A chronically ill gentleman for colonoscopy for past six months trying to get cardiac clearance. He was told to stop smoking and along with losing weight. He is in need of colonoscopy prior to considering ventral hernia repair. Risks and benefits explained in detail not limited to bleeding or infection, risk of bowel injury or perforation, risk of missed or nondiagnosis or incomplete exam possibly requiring barium enema, general risk of anesthesia or sedation, risk of cardiopulmonary event given his comorbidities. He understands at a later date will plan to discuss possible hernia repair, risk of bleeding or infection, risk of bowel injury, risk if the mesh infection possibly requiring removal. Risk of aches, pains possibly chronic in nature, risk of adhesion or bowel obstruction or ileus, remote risk of mesh fracture or failure possibly creating issue with the viscera or other structures possibly requiring other procedures, risk of hernia recurrence particularly given his weight issues and history of smoking. He understands the importance of stopping smoking and losing weight eventually. There is also a chance of recurrence, risk of deep venous thrombosis, pulmonary embolism, pneumonia, risk of cardiopulmonary event but not limited to. At this time we will set him up for outpatient colonoscopy.
[2019-07-12 09:16] VITALS: O2SAT 99
[2019-07-12 09:55] VITALS: BP 135/89; PULSE 50
--- NOTE | 2019-07-12 13:45 | OP ---
SURGERY DATE/TIME: 07/12/2019 08 PREOPERATIVE DIAGNOSIS: History of chronic abdominal pain, history of chronic back pain increasingly symptomatic ventral hernia. Need for colonoscopy prior to considering hernia repair. POSTOPERATIVE DIAGNOSES: 1) Ascending colon polyp. 2) Mast colonic diverticulosis. 3) Small internal and external hemorrhoids. 4) Limited bowel prep. 5) ASA Class III. PROCEDURES: Colonoscopy to cecum with hot biopsy polypectomy ascending colon polyps. SURGEON: Dr. Wu Reis. ANESTHESIA: MAC. ESTIMATED BLOOD LOSS: Minimal. WITHDRAWAL TIME: 7 minutes. INDICATIONS: As noted above. Risks and benefits explained in detail but not limited to and consent obtained. DESCRIPTION OF PROCEDURE AND FINDINGS: The patient is taken to the operating room. MAC anesthesia introduced. After official time out and no disagreement with planned procedure, digital rectal exam did not reveal any rectal masses. He did have some small internal and external hemorrhoids. Video colonoscope inserted and passed up through the tortuous left colon, transverse colon. With external pressure the scope passed down the ascending colon to cecum. Appendiceal orifice and valve well visualized and palpation of right lower quadrant confirmed location. Prep overall was limited. There were some semisolid and some solid stool chunks throughout the colon. These were suction irrigated as clear as possible but did slightly limit the exam. There was a small polyp in the ascending colon that was removed with hot biopsy forceps with brief bursts of cautery. Good hemostasis noted. Otherwise the patient did have small diverticula throughout the colon, pancolonic diverticulosis. The scope was slowly and carefully withdrawn over the next seven minutes. The biopsy site in the ascending colon had good hemostasis. There were no signs of any other large polyps, masses or obstructing lesions. The patient tolerated the procedure well. There were no immediate complications. There was no family available to discuss the findings with at this time.
== END 2019-07-12 09:56 | disposition home or self-care (01) ==
LOC: SDC 06:35
PROVIDERS: ATTEND Surgery
DX: K57.30 Diverticulosis of large intestine without perforation or abscess without bleeding (principal); D12.4 Benign neoplasm of descending colon; K64.4 Residual hemorrhoidal skin tags; K64.8 Other hemorrhoids; I10 Essential (primary) hypertension; Z86.79 Personal history of other diseases of the circulatory system
CPT/HCPCS: 88305; J2704

== ENCOUNTER 2019-07-28 00:03 | Observation (INO) | payer OTHER ==
[2019-07-28 00:47] LABS: A-aADO2 2; ABG HEMOGLOBIN 14.9; ABG POTASSIUM 4.1 (3.5-5.1); ABG SITE RIGHT BRACHIAL; ARTERIAL BLD GAS O2 SATURATION 99.5 % (95-100); ARTERIAL BLOOD GAS FIO2 21 %; ARTERIAL BLOOD GAS PCO2 40 mmHg (35-45); ARTERIAL BLOOD GAS PO2 98 mmHg (75-100); ARTERIAL BLOOD GAS pH 7.47 (7.35-7.45); HCO3- 29.1 (22-28); HGB O2 SAT 92.5 g/dF (94-100); paO2 pAO1 0.98
--- NOTE | 2019-07-28 00:59 | ERPHSYRPT ---
- History of Present Illness Time Seen by Provider: 07/28/19 00:18 Source: patient Exam Limitations: no limitations Patient Subjective Stated Complaint: pt states that he has been to multiple hospitals because he has been weak lately, pt states that he has not felt well for the past 2 couple weeks off and on, pt states that the middle of his back in hurting, pt states that he went to [facility] [place] Triage Nursing Assessment: pt ambulated into the er, pt is axo x4, pt states 10/ 10 pain to back, hypertensive, pt has wheezing in all lobes, c/o "not feeling well and feel weak" Physician History: Patient is a 58-year-old male who presents to our ED with complaints of generalized weakness, malaise, upper back soreness for the 2 weeks but worse over the past 3 days.. Patient has been to 2 previous hospitals. He had left both because states they were unable to obtain IV access. Patient denies chest pain. No nausea vomiting or diaphoresis. Symptoms are progressive. Symptoms are moderate in intensity. No specific worsening improving factors. Patient voices no other complaints at this time. Timing/Duration: day(s) Severity: moderate Modifying Factors: Improves With: nothing Associated Symptoms: cough, malaise, No nausea, No vomiting, No diaphoresis, No chest pain Allergies/Adverse Reactions: midazolam HCl [From Versed] Allergy (Severe, Verified 07/28/19 00:29) Rash "and upset stomach" ampicillin [Ampicillin] Allergy (Mild, Verified 07/28/19 00:29) Rash "and upset stomach" promethazine HCl [From Phenergan] Allergy (Mild, Verified 07/28/19 00:29) Rash "and upset stomach" Hx Tetanus, Diphtheria Vaccination/Date Given: Yes Hx Influenza Vaccination/Date Given: No Hx Pneumococcal Vaccination/Date Given: No Travel Risk - International Travel Have you traveled outside of the country in past 3 weeks: No Have you or anyone close to you been diagnosed with or: No Do your reside in a community with a known COVID-19 case?: Yes If Yes where:: [facility] - Coronavirus Screening Has patient experienced Coronavirus symptoms: Yes Symptoms experienced: respiratory symptoms (i.e.Cought,shortness of breath), weakness - Review of Systems Constitutional: No Symptoms, No Fever, No Chills Eyes: No Symptoms Ears, Nose, & Throat: No Symptoms Respiratory: Cough, Dyspnea on Exertion (GUERRERO), Wheezing, No Dyspnea Cardiac: No Symptoms, No Chest Pain, No Edema, No Syncope Abdominal/Gastrointestinal: No Symptoms, No Abdominal Pain, No Nausea, No Vomiting, No Diarrhea Genitourinary Symptoms: No Symptoms, No Dysuria Musculoskeletal: No Symptoms, No Back Pain, No Neck Pain Skin: No Symptoms, No Rash Neurological: No Symptoms, No Dizziness, No Focal Weakness, No Sensory Changes Psychological: No Symptoms Endocrine: No Symptoms Hematologic/Lymphatic: No Symptoms Immunological/Allergic: No Symptoms All Other Systems: Reviewed and Negative - Past Medical History Pertinent Past Medical History: Yes Neurological History: No Pertinent History ENT History: No Pertinent History Cardiac History: Myocardial Infarction (MS) Respiratory History: No Pertinent History Endocrine Medical History: No Pertinent History Musculoskeletal History: Osteoarthritis GI Medical History: Diverticulitis, Polyps History: No Pertinent History Psycho-Social History: No Pertinent History Male Reproductive Disorders: No Pertinent History Other Medical History: back problems - Past Surgical History Past Surgical History: Yes Neuro Surgical History: No Pertinent History Cardiac: No Pertinent History Respiratory: No Pertinent History Gastrointestinal: Colon Resection, Hernia Repair Genitourinary: No Pertinent History Musculoskeletal: Orthopedic Surgery Male Surgical History: No Pertinent History Other Surgical History: a couple ""back operations. - Social History Smoking Status: Current every day smoker How long have you smoked: 20years Exposure to second hand smoke: Yes Drug Use: none Patient Lives Alone: No - Nursing Vital Signs Nursing Vital Signs: Initial Vital Signs Temperature 97.4 F 07/28/19 00:13 Pulse Rate 53 L 07/28/19 00:13 Respiratory Rate 24 07/28/19 00:13 Blood Pressure 189/99 07/28/19 00:13 O2 Sat by Pulse Oximetry 98 07/28/19 00:13 Pain Scale Pain Intensity [] 10 Pain Intensity 10 - Physical Exam General Appearance: no apparent distress, alert Eye Exam: PERRL/EOMI, eyes nml inspection Ears, Nose, Throat Exam: normal ENT inspection, TMs normal, pharynx normal, moist mucous membranes Neck Exam: normal inspection, non-tender, supple, full range of motion Respiratory Exam: normal breath sounds, other (Coarse breath sounds bilaterally. Faint wheezing bilateral lung bentley.), No respiratory distress Cardiovascular Exam: regular rate/rhythm, normal heart sounds, normal peripheral pulses Gastrointestinal/Abdomen Exam: soft, normal bowel sounds, No tenderness, No mass Rectal Exam: deferred Back Exam: normal inspection, normal range of motion, No CVA tenderness, No vertebral tenderness Extremity Exam: normal inspection, normal range of motion, pelvis stable Neurologic Exam: alert, oriented x 3, cooperative, normal mood/affect, nml cerebellar function, nml station & gait, sensation nml, No motor deficits Skin Exam: normal color, warm, dry, No rash Lymphatic Exam: No adenopathy SpO2 Interpretation: normal SpO2: 98 O2 Delivery: Room Air - Course Nursing assessment & vital signs reviewed: Yes EKG Interpreted by Me: RATE ([id number]), Sinus [place], Left [place] Deviation, Left Bundle Branch Block - Radiology Exams Chest X-ray Interpretation: Teleradiologist Report (Mildly prominent pulmonary vasculature mild bilateral interstitial opacities more prominent in the lung bases. Mild thickening of the minor fissure. Mildly enlarged heart shadow. 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 07/28/19 00:27 Active EKG-ER Only STAT Care 07/28/19 00:26 Active IV Insertion STAT Care 07/28/19 00:26 Active Isolation, Initiate & Maintain Q4H Care 07/28/19 00:28 Active Pulse Oximetry (ED) STAT Care 07/28/19 00:26 Active CHEST 1 VIEW (PORTABLE) Stat Exams 07/28/19 00:26 Taken ARTERIAL BLOOD GASES Stat Lab 07/28/19 00:40 Completed BLOOD CULTURE Stat Lab 07/28/19 01:25 Received BNP [NT PRO BNP] Stat Lab 07/28/19 01:25 Completed CBC W DIFF Stat Lab 07/28/19 01:25 Completed CMP Stat Lab 07/28/19 01:25 Completed Lactic Acid Stat Lab 07/28/19 00:40 Completed MAG [MAGNESIUM] Stat Lab 07/28/19 01:25 Completed TROPONIN Q3H Lab 07/28/19 01:25 Completed TROPONIN Q3H Lab 07/28/19 03:30 Ordered TROPONIN Q3H Lab 07/28/19 06:30 Ordered TROPONIN Q3H Lab 07/28/19 09:30 Ordered TROPONIN Q3H Lab 07/28/19 12:30 Ordered UA W/RFX UR CULTURE Stat Lab 07/28/19 01:15 Completed Transfer Order Routine Transfer 07/28/19 Ordered Medication Summary Discontinued Medications Generic Name Dose Route Start Last Admin Trade Name Clive PRN Reason Stop Dose Admin Aspirin 324 mg 07/28/19 03:27 Baby Aspirin 81 Mg Chew PO 07/28/19 03:28 STAT ONE Enoxaparin Sodium 100 mg 07/28/19 03:24 Enoxaparin Sodium SQ 07/28/19 03:25 ONCE STA Furosemide 20 mg 07/28/19 03:27 Lasix 20 Mg PO 07/28/19 03:28 ONCE STA Nitroglycerin 1 gm 07/28/19 03:26 Nitro-Bid 2% Ud Packets TOP 07/28/19 03:27 STAT ONE Nitroglycerin Confirm 07/28/19 03:28 Nitro-Bid 2% Ud Packets Administered 07/28/19 03:29 Dose 1 gm .ROUTE .STCertiVox-MED ONE Lab/Rad Data: Laboratory Result Diagrams 07/28/19 01:25 07/28/19 01:25 Laboratory Results 07/28/19 07/28/19 07/28/19 Range/Units 01:25 01:25 01:25 WBC (4.0-10.5) K/mm3 RBC (4.1-5.6) M/mm3 Hgb (12.5-18.0) gm/dl Hct (42-50) % MCV (78-100) fl MCH (26-32) pg MCHC (32-36) g/dl RDW (11.5-14.0) % Plt Count (150-450) K/mm3 MPV (7.5-11.0) fl Gran % (36.0-66.0) % Eos # (Auto) (0-0.5) Absolute Lymphs (auto) (1.0-4.6) Absolute Monos (auto) (0.0-1.3) Lymphocytes % (24.0-44.0) % Monocytes % (0.0-12.0) % Eosinophils % (0.00-5.0) % Basophils % (0.0-0.4) % Absolute Granulocytes (1.4-6.9) Basophils # (0-0.4) Puncture Site pCO2 (35-45) mmHg pO2 (75-100) mmHg Base Excess (-2.0-2.0) O2 Saturation (94-100) g/dF ABG pH (7.35-7.45) ABG HCO3 (22-28) ABG O2 Sat (Measured) (95-100) % Joselito Test A-a Gradient a/A Ratio Hemoglobin Carboxyhemoglobin (0.0-6.9) % THgb Methemoglobin (1.4-1.5) % Potassium (3.5-5.1) Temperature C POC O2 Flow Rate % Sodium (137-145) mmol/L Chloride (98-107) mmol/L Carbon Dioxide (22-30) mmol/L Anion Gap (5-15) MEQ/L BUN (9-20) mg/dL Creatinine (0.66-1.25) mg/dL Estimated GFR ML/MIN Glucose (74-106) mg/dL Lactic Acid (0.4-2.0) Calcium (8.4-10.2) mg/dL Magnesium 2.0 (1.6-2.3) mg/dL Total Bilirubin (0.2-1.3) mg/dL AST (17-59) U/L ALT (0-50) U/L Alkaline Phosphatase (38-126) U/L Troponin I 0.413 H* (0.000-0.034) ng/mL NT-Pro-B Natriuret Pep 440 (0-900) pg/mL Serum Total Protein (6.3-8.2) g/dL Albumin (3.5-5.0) g/dL Urine Color (YELLOW) Urine Appearance (CLEAR) Urine pH (5-6) Ur Specific [place] (1.005-1.025) Urine Protein (Negative) Urine Ketones (NEGATIVE) Urine Blood (0-5) Michael/ul Urine Nitrite (NEGATIVE) Urine Bilirubin (NEGATIVE) Urine Urobilinogen (0-1) mg/dL Ur Leukocyte Esterase (NEGATIVE) Urine WBC (Auto) (0-5) /HPF Urine RBC (Auto) (0-2) /HPF U Epithel Cells (Auto) (FEW) /HPF Urine Bacteria (Auto) (NEGATIVE) /HPF Urine Culture Reflexed (NO) Urine Glucose (NEGATIVE) mg/dL Influenza Type A Ag (NEGATIVE) Influenza Type B Ag (NEGATIVE) RSV (PCR) (Negative) Group A Strep Antibody (NEGATIVE) 07/28/19 07/28/19 07/28/19 Range/Units 01:25 01:25 01:15 WBC 9.3 (4.0-10.5) K/mm3 RBC 5.29 (4.1-5.6) M/mm3 Hgb 15.0 (12.5-18.0) gm/dl Hct 43.8 (42-50) % MCV 82.8 (78-100) fl MCH 28.4 (26-32) pg MCHC 34.2 (32-36) g/dl RDW 13.6 (11.5-14.0) % Plt Count 202 (150-450) K/mm3 MPV 10.5 (7.5-11.0) fl Gran % 61.2 (36.0-66.0) % Eos # (Auto) 0.38 (0-0.5) Absolute Lymphs (auto) 2.48 (1.0-4.6) Absolute Monos (auto) 0.74 (0.0-1.3) Lymphocytes % 26.6 (24.0-44.0) % Monocytes % 7.9 (0.0-12.0) % Eosinophils % 4.1 (0.00-5.0) % Basophils % 0.2 (0.0-0.4) % Absolute Granulocytes 5.70 (1.4-6.9) Basophils # 0.02 (0-0.4) Puncture Site pCO2 (35-45) mmHg pO2 (75-100) mmHg Base Excess (-2.0-2.0) O2 Saturation (94-100) g/dF ABG pH (7.35-7.45) ABG HCO3 (22-28) ABG O2 Sat (Measured) (95-100) % Joselito Test A-a Gradient a/A Ratio Hemoglobin Carboxyhemoglobin (0.0-6.9) % THgb Methemoglobin (1.4-1.5) % Potassium 4.0 (3.5-5.1) Temperature C POC O2 Flow Rate % Sodium 138 (137-145) mmol/L Chloride 103 (98-107) mmol/L Carbon Dioxide 27 (22-30) mmol/L Anion Gap 12.3 (5-15) MEQ/L BUN 16 (9-20) mg/dL Creatinine 0.64 L (0.66-1.25) mg/dL Estimated GFR > 60.0 ML/MIN Glucose 98 (74-106) mg/dL Lactic Acid (0.4-2.0) Calcium 9.1 (8.4-10.2) mg/dL Magnesium (1.6-2.3) mg/dL Total Bilirubin 0.40 (0.2-1.3) mg/dL AST 38 (17-59) U/L ALT 28 (0-50) U/L Alkaline Phosphatase 127 H (38-126) U/L Troponin I (0.000-0.034) ng/mL NT-Pro-B Natriuret Pep (0-900) pg/mL Serum Total Protein 7.6 (6.3-8.2) g/dL Albumin 4.1 (3.5-5.0) g/dL Urine Color YELLOW (YELLOW) Urine Appearance CLEAR (CLEAR) Urine pH 7.0 (5-6) Ur Specific [place] 1.014 (1.005-1.025) Urine Protein NEGATIVE (Negative) Urine Ketones NEGATIVE (NEGATIVE) Urine Blood NEGATIVE (0-5) Michael/ul Urine Nitrite NEGATIVE (NEGATIVE) Urine Bilirubin NEGATIVE (NEGATIVE) Urine Urobilinogen 2 (0-1) mg/dL Ur Leukocyte Esterase NEGATIVE (NEGATIVE) Urine WBC (Auto) 6-10 (0-5) /HPF Urine RBC (Auto) NONE (0-2) /HPF U Epithel Cells (Auto) NONE (FEW) /HPF Urine Bacteria (Auto) NONE (NEGATIVE) /HPF Urine Culture Reflexed NO (NO) Urine Glucose NEGATIVE (NEGATIVE) mg/dL Influenza Type A Ag (NEGATIVE) Influenza Type B Ag (NEGATIVE) RSV (PCR) (Negative) Group A Strep Antibody (NEGATIVE) 07/28/19 07/28/19 Range/Units 01:10 00:40 WBC (4.0-10.5) K/mm3 RBC (4.1-5.6) M/mm3 Hgb (12.5-18.0) gm/dl Hct (42-50) % MCV (78-100) fl MCH (26-32) pg MCHC (32-36) g/dl RDW (11.5-14.0) % Plt Count (150-450) K/mm3 MPV (7.5-11.0) fl Gran % (36.0-66.0) % Eos # (Auto) (0-0.5) Absolute Lymphs (auto) (1.0-4.6) Absolute Monos (auto) (0.0-1.3) Lymphocytes % (24.0-44.0) % Monocytes % (0.0-12.0) % Eosinophils % (0.00-5.0) % Basophils % (0.0-0.4) % Absolute Granulocytes (1.4-6.9) Basophils # (0-0.4) Puncture Site RIGHT BRACHIAL pCO2 40 (35-45) mmHg pO2 98 (75-100) mmHg Base Excess 5.0 H (-2.0-2.0) O2 Saturation 92.5 L (94-100) g/dF ABG pH 7.47 H (7.35-7.45) ABG HCO3 29.1 H* (22-28) ABG O2 Sat (Measured) 99.5 (95-100) % Joselito Test NOT APPLICABLE A-a Gradient 2 a/A Ratio 0.98 Hemoglobin 14.9 Carboxyhemoglobin 6.0 (0.0-6.9) % THgb Methemoglobin 1.0 L (1.4-1.5) % Potassium 4.1 (3.5-5.1) Temperature 37.0 C POC O2 Flow Rate 21 % Sodium (137-145) mmol/L Chloride (98-107) mmol/L Carbon Dioxide (22-30) mmol/L Anion Gap (5-15) MEQ/L BUN (9-20) mg/dL Creatinine (0.66-1.25) mg/dL Estimated GFR ML/MIN Glucose (74-106) mg/dL Lactic Acid 1.0 (0.4-2.0) Calcium (8.4-10.2) mg/dL Magnesium (1.6-2.3) mg/dL Total Bilirubin (0.2-1.3) mg/dL AST (17-59) U/L ALT (0-50) U/L Alkaline Phosphatase (38-126) U/L Troponin I (0.000-0.034) ng/mL NT-Pro-B Natriuret Pep (0-900) pg/mL Serum Total Protein (6.3-8.2) g/dL Albumin (3.5-5.0) g/dL Urine Color (YELLOW) Urine Appearance (CLEAR) Urine pH (5-6) Ur Specific [place] (1.005-1.025) Urine Protein (Negative) Urine Ketones (NEGATIVE) Urine Blood (0-5) Michael/ul Urine Nitrite (NEGATIVE) Urine Bilirubin (NEGATIVE) Urine Urobilinogen (0-1) mg/dL Ur Leukocyte Esterase (NEGATIVE) Urine WBC (Auto) (0-5) /HPF Urine RBC (Auto) (0-2) /HPF U Epithel Cells (Auto) (FEW) /HPF Urine Bacteria (Auto) (NEGATIVE) /HPF Urine Culture Reflexed (NO) Urine Glucose (NEGATIVE) mg/dL Influenza Type A Ag NEGATIVE (NEGATIVE) Influenza Type B Ag NEGATIVE (NEGATIVE) RSV (PCR) NEGATIVE (Negative) Group A Strep Antibody DETECTED (NEGATIVE) - Progress Progress: improved Progress Note: 07/28/19 03:43 Patient reassessed. He feels better. Work-up reveals an STEMI. Case discussed with Dr. Bermudez. Patient received a dose of Lovenox. Patient also received aspirin and Nitropaste. Patient rapid strep positive. Patient received azithromycin p.o. BNP elevated at 400. Patient received a 20 mg dose of Lasix. Patient's chest x-ray suggestive of possible COVID. COVID testing ordered. Dr. Bermudez accepts admission to observation telemetry. Plan of care discussed with patient. He agrees to admission to [facility] for further evaluation and treatment. Discussed with DrRodrigue: Other Will see patient in: hospital (observation) Counseled pt/family regarding: lab results, diagnosis, rad results - Departure Departure Disposition: Observation Clinical Impression: Elevated troponin, Strep throat, NSTEMI (non-ST elevated myocardial infarction) , Elevated brain natriuretic peptide (BNP) level, Opacities of both lungs present on chest x-ray Condition: Stable Critical Care Time: Yes Critical Care Time(excluding separately billable procedures): Critical 75-104 mins Referrals: JUAN MIRANDA [Primary Care Provider] -
[2019-07-28 01:34] LABS: BASOPHIL % 0.2 % (0.0-0.4); Basophil (Absolute #) 0.02 (0-0.4); Eosinophil % 4.1 % (0.00-5.0); Eosinophil (Absolute #) 0.38 (0-0.5); Hematocrit 43.8 % (42-50); Lymphocyte (Absolute #) 2.48 (1.0-4.6); Lymphocytes % 26.6 % (24.0-44.0); Mean Cell Volume 82.8 fl (78-100); Mean Corpuscular Hemoglobin 28.4 pg (26-32); Mean Corpuscular Hgb Concent. 34.2 g/dl (32-36); Mean Platelet Volume 10.5 fl (7.5-11.0); Monocyte (Absolute #) 0.74 (0.0-1.3); Monocytes % 7.9 % (0.0-12.0); Neutrophil % 61.2 % (36.0-66.0); Platelet Count 202 K/mm3 (150-450); Red Blood Count 5.29 M/mm3 (4.1-5.6); Red Cell Distribution Width 13.6 % (11.5-14.0); White Blood Count 9.3 K/mm3 (4.0-10.5)
[2019-07-28 01:56] LABS: ALBUMIN 4.1 g/dL (3.5-5.0); ALKALINE PHOSPHATASE 127 U/L (38-126); ANION GAP 12.3 MEQ/L (5-15); BLOOD UREA NITROGEN 16 mg/dL (9-20); CHLORIDE 103 mmol/L (98-107); Calcium 9.1 mg/dL (8.4-10.2); Carbon Dioxide 27 mmol/L (22-30); Creatinine 1 0.64 mg/dL (0.66-1.25); Glucose 98 mg/dL (74-106); SGOT/AST 38 U/L (17-59); SGPT/ALT 28 U/L (0-50); SODIUM 138 mmol/L (137-145); Total Protein 7.6 g/dL (6.3-8.2)
[2019-07-28 02:00] LABS: Appearance CLEAR (CLEAR); Bilirubin NEGATIVE (NEGATIVE); Blood NEGATIVE Ery/ul (0-5); Glucose NEGATIVE (NEGATIVE); Ketones NEGATIVE (NEGATIVE); Leukocyte Esterase NEGATIVE (NEGATIVE); Nitrite NEGATIVE (NEGATIVE); Protein,Urine Dip NEGATIVE (Negative); Specific Gravity 1.014 (1.005-1.025); Urobilinogen 2 mg/dL (0-1)
[2019-07-28 02:26] LABS: INFLUENZA A NEGATIVE (NEGATIVE); INFLUENZA B NEGATIVE (NEGATIVE); RESPIRATORY SYNCTIAL VIRUS NEGATIVE (Negative)
[2019-07-28] MEDS ORDERED: ENOXAPARIN SODIUM SQ STA (03:24)
[2019-07-28] MEDS ORDERED: NITRO-BID 2% UD PACKETS TOP ONE (03:26)
[2019-07-28] MEDS ORDERED: BABY ASPIRIN 81 MG CHEW PO ONE (03:27)
[2019-07-28] MEDS ORDERED: LASIX 20 MG PO STA (03:27)
[2019-07-28] MEDS ORDERED: NITRO-BID 2% UD PACKETS ONE (03:28)
[2019-07-28] MEDS ORDERED: Zithromax 250 MG TABLET PO ONE (03:40)
[2019-07-28] MEDS ORDERED: BABY ASPIRIN 81 MG CHEW ONE (03:43)
[2019-07-28] MEDS ORDERED: Zithromax 250 MG TABLET ONE (03:43)
[2019-07-28] MEDS ORDERED: ENOXAPARIN SODIUM SQ SCH ×2 (04:24→16:00)
[2019-07-28 08:48] VITALS: BP 179/86
--- NOTE | 2019-07-28 09:09 | XRAY ---
Indication: Pneumonia. Comparison: December 09, 2018. Portable chest now demonstrates cardiomegaly and mild bilateral interstitial opacities, possibly mild/early cardiac decompensation in the right clinical setting. Superimposed pneumonia not completely excluded. Bony thorax intact again with mild degenerative changes. Comment: Preliminary interpretation was made by [facility]. No critical discrepancy.
[2019-07-28] MEDS ORDERED: Ecotrin 325 MG PO SCH (10:00)
[2019-07-28 10:27] VITALS: PULSE 62; O2SAT 98
[2019-07-28] MEDS ORDERED: Oxy-IR 5 MG PO PRN (10:27)
[2019-07-28] MEDS ORDERED: NON-FORMULARY ITEM (Oxycodone Hcl [Oxycodone Hcl] 10 MG) PO SCH (10:30)
[2019-07-28] MEDS ORDERED: Lopressor 50 MG PO SCH (11:00)
--- NOTE | 2019-07-28 11:40 | XRAY ---
Indication: Short of breath. Elevated d-dimer. Covid 19. Multiple contiguous axial images obtained through the chest using 80 cc Isovue 370 contrast and PE protocol. Comparison: None There is good opacification of the pulmonary arteries to include the lobar and segmental branches. No filling defect/pulmonary embolus. Heart is borderline enlarged. Aorta is normal in course and caliber without aneurysm/dissection. No pathologic mediastinal/hilar lymphadenopathy. Lungs are inflated with minimal bilateral upper lobe emphysema. No suspicious pulmonary mass, infiltrate, consolidation, or effusion. Bony thorax intact with flowing osteophytes throughout the spine. Limited upper abdomen demonstrates mild fatty liver and 13.1 cm splenomegaly. Impression: 1. Negative pulmonary embolus. 2. Borderline cardiomegaly without CHF and minimal pulmonary emphysema. 3. No acute cardiopulmonary abnormalities. 4. Incidental fatty liver and splenomegaly.
[2019-07-29] MEDS ORDERED: BABY ASPIRIN 81 MG CHEW PO SCH (10:00)
[2019-07-29] MEDS ORDERED: ECOTRIN 81 MG PO SCH (10:00)
--- NOTE | 2019-08-16 11:54 | SSS ---
ADMISSION DIAGNOSES: 1) Chest pain. 2) Cough. 3) Possible COVID virus infection. 4) Elevated D-dimer. 5) Elevated troponin. DISCHARGE DIAGNOSES: 1) CORONARY ARTERY DISEASE. 2) CHEST PAIN PROBABLY DUE TO ISCHEMIA. 3) CHRONIC COUGH. 4) EMPHYSEMA. 5) FATTY LIVER DISEASE. HISTORY: The patient is a 58 year-old white male who said he was having some intermittent chest pain and some shortness of breath. He said myocardial infarction two years ago and is followed by a legal service specialist in [place]. He actually has an appointment he states next week. He said the pain was non-radiating and was relieved by the time he got to the emergency room. He states he had some chronic cough. He still smokes. PAST MEDICAL HISTORY: Chronic obstructive pulmonary disease. Coronary artery disease. Anxiety disorder. Chronic back pain. The patient had been on quite a bit of narcotics but he has been out of them. SOCIAL HISTORY: The patient is and lives with his grandkids. He is unemployed at the present time. He states he does not drink. REVIEW OF SYSTEMS: HEENT: Hears and sees okay. CHEST: Short of breath on exertion. States he has spells of shortness of breath and chronic cough nonproductive recently. ABDOMEN: No nausea or vomiting. PHYSICAL EXAMINATION: The patient is an older than normal appearing 58 year-old white male in no acute distress. He describes he has no pain now. He did describe it as kind of tightness. HOSPITAL COURSE: The patient had CT of the chest because of markedly elevated D-dimer and it was negative for pulmonary emboli. Cardiomegaly, pulmonary emphysema, fatty liver and splenomegaly. EKG abnormal. He has got left atrial enlargement, sinus bradycardia, left bundle branch block. The patient's initial troponins were just minimally elevated and came down the next morning. He had no more chest pain. His coronavirus test was negative. His white count was 9, hemoglobin 15. Creatinine was 0.64. Troponin was 0.347 at 0500 hours and on admission was 0.413. D-dimer was 1300. The patient had no more chest pain. Follow up troponins were normal. He was discharged to follow up with his legal service specialist who he said he has an appointment in the next week. He is also to see Dr. Trotter.
== END 2019-07-28 12:20 | disposition left against medical advice (07) ==
LOC: ED 00:03 → MED SURG 04:20
PROVIDERS: ADMIT Family Medicine; ATTEND Family Medicine
DX: I25.10 Atherosclerotic heart disease of native coronary artery without angina pectoris (principal); R07.9 Chest pain, unspecified; R53.1 Weakness; J43.9 Emphysema, unspecified; R79.1 Abnormal coagulation profile; K76.0 Fatty (change of) liver, not elsewhere classified; R79.89 Other specified abnormal findings of blood chemistry; R05 Cough; R06.02 Shortness of breath; I25.2 Old myocardial infarction; Z79.899 Other long term (current) drug therapy
CPT/HCPCS: 71260; 80053; 81001; 82375; 82803; 83605; 83735; 83880; 84484; 85025; 85379; 87040; 87631; 87651; 93005; 93041; 93268; 94762; 96372; 99291; 99292; G0378; U0002; 36000; 36415; 36600; 71045; 94760; 99285; J1650; A9270-GY

== ENCOUNTER 2019-08-18 21:30 | Emergency (ER) | payer OTHER ==
--- NOTE | 2019-08-18 21:33 | ERPHSYRPT ---
- History of Present Illness Time Seen by Provider: 08/18/19 21:33 Physician History: Patient left without being seen. Patient did not want to wait. He left from the waiting room area Allergies/Adverse Reactions: midazolam HCl [From Versed] Allergy (Severe, Verified 07/28/19 00:29) Rash "and upset stomach" ampicillin [Ampicillin] Allergy (Mild, Verified 07/28/19 00:29) Rash "and upset stomach" promethazine HCl [From Phenergan] Allergy (Mild, Verified 07/28/19 00:29) Rash "and upset stomach" Home Medications: Oxycodone HCl 10 mg PO QID PRN 07/28/19 [History] Hx Tetanus, Diphtheria Vaccination/Date Given: Yes Hx Influenza Vaccination/Date Given: No Hx Pneumococcal Vaccination/Date Given: No - Past Medical History Pertinent Past Medical History: Yes Neurological History: No Pertinent History ENT History: No Pertinent History Cardiac History: Myocardial Infarction (MT) Respiratory History: No Pertinent History Endocrine Medical History: No Pertinent History Musculoskeletal History: Osteoarthritis GI Medical History: Diverticulitis, Polyps History: No Pertinent History Psycho-Social History: No Pertinent History Male Reproductive Disorders: No Pertinent History Other Medical History: back problems - Past Surgical History Past Surgical History: Yes Neuro Surgical History: No Pertinent History Cardiac: No Pertinent History Respiratory: No Pertinent History Gastrointestinal: Colon Resection, Hernia Repair Genitourinary: No Pertinent History Musculoskeletal: Orthopedic Surgery Male Surgical History: No Pertinent History Other Surgical History: a couple ""back operations. - Social History Smoking Status: Current every day smoker How long have you smoked: 20years Exposure to second hand smoke: Yes Drug Use: none Patient Lives Alone: No - Departure Departure Disposition: Left without being seen Condition: Stable Critical Care Time: No Referrals: JUAN MIRANDA [Primary Care Provider] -
== END 2019-08-18 22:15 | disposition left against medical advice (07) ==
LOC: ED 21:30
DX: Z53.9 Procedure and treatment not carried out, unspecified reason (principal)